=== PATIENT | male | born 1990 | race Two or more races ===

== ENCOUNTER 2017-01-27 11:49 | Emergency (ER) | payer OTHER ==
[~2017-01-27] VITALS: Ht 182.9 cm; Wt 176.4 kg
[2017-01-27 12:32] VITALS: BP 114/69
[2017-01-27] MEDS: LIDOCAINE 1% HCL (LOCAL ANESTH.) INJ 20ML MDV IJ ONE (13:45)
[2017-01-27] MEDS: TETANUS-DIPTH-ACEL PERTUSSIS 0.5ML SYRG IM ONE (14:00)
[2017-01-27] MEDS: KETOROLAC TROMETH 60MG/2ML VIAL IM ONE (14:00)
[2017-01-27] MEDS: cefTRIAXone SOD 1,000 MG VL IM ONE (14:00)
[2017-01-27] MEDS: LIDOCAINE 2%HCL (LOCAL ANESTH.) INJ 20ML MDV ONE (14:15)
[2017-01-27] MEDS: NEOMYCIN-BACITRACIN-POLYM UNITDOSE PKG TOP OINT TOP ONE (14:33)
== END 2017-01-27 14:42 | disposition home or self-care (01) ==
LOC: ER 11:49
DX: S01.511A Laceration without foreign body of lip, initial encounter (principal); W51.XXXA Accidental striking against or bumped into by another person, initial encounter; Y93.89 Activity, other specified; Y92.098 Other place in other non-institutional residence as the place of occurrence of the external cause; Y99.8 Other external cause status; Z23 Encounter for immunization
CPT/HCPCS: 12052; 90471; 90715; 96372; 99284; J0696; J1885

== ENCOUNTER 2017-01-29 17:40 | Emergency (ER) | payer OTHER ==
[~2017-01-29] VITALS: Ht 182.9 cm; Wt 176.4 kg
[2017-01-29 18:13] VITALS: BP 157/94
== END 2017-01-29 22:23 | disposition home or self-care (01) ==
LOC: ER 17:54
DX: S01.511D Laceration without foreign body of lip, subsequent encounter (principal); Z48.00 Encounter for change or removal of nonsurgical wound dressing; X58.XXXD Exposure to other specified factors, subsequent encounter

== ENCOUNTER 2018-12-16 15:06 | Emergency (ER) | payer OTHER ==
[~2018-12-16] VITALS: Ht 182.9 cm; Wt 166.0 kg
[2018-12-16 15:19] VITALS: BP 134/87
== END 2018-12-16 17:22 | disposition home or self-care (01) ==
LOC: ER 15:06
DX: F41.1 Generalized anxiety disorder (principal); L25.9 Unspecified contact dermatitis, unspecified cause